=== PATIENT | female | born 1965 ===

== ENCOUNTER 2021-07-28 08:45 | Inpatient (IN) | payer OTHER ==
[~2021-07-28] VITALS: Ht 160 cm; Wt 97.5 kg
[2021-07-28] MEDS ORDERED: LYRICA200 MG PO (11:59)
[2021-07-28] MEDS ORDERED: ZANAFLEX4 M1 PO (11:59)
[2021-07-28] MEDS ORDERED: RESTORIL PO ×2 (12:00→12:01)
[2021-07-28] MEDS ORDERED: ZESTRIL40 M1 PO (12:01)
[2021-07-28] MEDS ORDERED: CATAFLAN PO (12:02)
[2021-07-28] MEDS ORDERED: LIPITOR PO (12:02)
[2021-08-03] MEDS ORDERED: DIAZEPAM5 MG PO (17:04)
[2021-08-03] MEDS ORDERED: COLACE100 MG PO (17:04)
[2021-08-03] MEDS ORDERED: PERCOCET 5-3251 EACH PO (17:04)
[2021-08-03] MEDS ORDERED: MEDROLPACK PO (17:04)
== END 2021-08-04 14:19 | disposition home or self-care (01) | DRG 520 ==
LOC: O/R 08-03 06:15 → SURH 08-03 07:00
PROVIDERS: ADMIT Orthopaedic Surgery Orthopaedic Surgery of the Spine; ATTEND Orthopaedic Surgery Orthopaedic Surgery of the Spine
PROC: 0RT30ZZ Resection of Cervical Vertebral Disc, Open Approach (ICD-10-PCS; principal; 2021-08-03 07:00)
DX: M50.022 Cervical disc disorder at C5-C6 level with myelopathy (principal)